=== PATIENT | female | born 1950 | race Caucasian/White ===

== ENCOUNTER → 2018-08-20 | Outpatient (CLI) | payer MEDICARE, OTHER ==
[~2018-08-20] MED LIST: AMLO10 PO; ASPI81EC PO; Aldactone50 MG PO; Aspir 8181 MG PO; BIEST/PROG/TEST; DIOVAN/HCTZ; Diovan Hct 1601 EACH PO; ERGO400 PO; HYDACE5 PO; HYDR1TAB94 PO; METO50ER PO; PROM25 PO; ROSU10TA PO; TOCO1000 PO; VAGIFEM10 MCG VAG; VITAMIN D-32000 UNIT PO
== END | disposition home or self-care (01) ==
LOC: LAB SHORT 07:49 → PLD 07:49
DX: L82.1 Other seborrheic keratosis (principal)
CPT/HCPCS: 88305